=== PATIENT | male | born 1970 | race Caucasian/White ===

== ENCOUNTER 2025-08-07 12:43 | Outpatient (AMB) | payer OTHER, SELFPAY ==
--- NOTE | 2025-08-07 12:55 | HO.SPINEOV ---
Vital Signs 08/07/25 12:58 Height 6 ft 5 in Weight 320 lb BMI 37.9 Intake Visit Reasons: low back pain Intake Note: Mr. Kearney is here today c/o severe low back and leg pain. MRI done at [facility]. Physician Relations Representative Required: No Allergies No Known Allergies Allergy (Verified 08/07/25 12:58) Physical Exam Vital Signs: BMI result Body Mass Index 37.9 Assessment & Plan Assessment & Plan (1) Traumatic compression fracture of lumbar vertebra: Code(s): S32.000A - Wedge compression fracture of unspecified lumbar vertebra, initial encounter for closed fracture Category: Medical Plan: Dear colleague Thank you for referring Chaz Kearney to the office today with a chief complaint of back pain after a fall. HPI: This 55-year-old PR comes to my clinic complaining of persistent right-sided low back pain after a fall. Specifically, 4 months ago he fell down the stairs and landed on his buttock. Initially, he had severe pain 10/10 and was only able to lay in bed. Currently, the pain has improved. In rest it is 2/10 and with prolonged activity it increases to 5 to 6/10. He takes 2 ibuprofen a day. He denies radiation down his legs. No weakness or numbness. He was diagnosed with traumatic compression fractures and comes in to see me for an opinion. He denies osteoporosis. In fact, the [facility] did a bone density scan, which apparently was normal. PMH: Asthma, left knee replacement Medications: Albuterol, vitamin-D, omeprazole, naproxen, fluticasone Allergies: None Social history: Smokes 1 pack a day Physical Exam: Pleasant male. Height 6'5 weight 320 lb. He is able to come out of chair without difficulty. He ambulates with a cane. The pain is located in the left paravertebral region of the lower lumbar spine. Radiological Studies: MRI done at [facility] on 06/15/2025 shows acute L1 and L2 and L3 compression fractures without compromise of the neurological structures. There is approximately 30% height loss at L1 and L2 and less than 20% height loss of L3. The stir images showed that the L2 vertebral body is the most affected. There old compressions visible at L4 and L5. A standing x-ray obtained confirms that the compression fractures are stable. Impression/Plan: This patient has suffered from traumatic lumbar fractures of L1-L3 after a fall. I read the bone density report and it stated that despite the fact that the values were normal, he is considered to have osteoporosis based on the compression fractures after a low impact injury. He was started on vitamin-D. I told him he needs to add calcium to this regiment to be effective. He is slowly recovering. I did not offer him a kyphoplasty as this would involve multiple levels which puts him at risk for adjacent compression fractures. I advised him to continue conservative management. A new MRI needs to be obtained in 2 months if his symptoms are not further improving. He will become a kyphoplasty candidate at that time. Thank you for allowing me to participate in your patients care. total time spent was 50 minutes in counseling ,coordination of plan, personal review of imaging, surgical decision making and subsequent plan Nitesh Rosas MD, PhD [facility] Trained Neurosurgeon Director, [facility] Orders: Orders XR lumbar spine 2-3V Today S32.000A - Wedge compression fracture of unspecified lumbar vertebra, initial encounter for closed fracture Coding Level of Care Code New Pt Level 4 (72274) Diagnoses Traumatic compression fracture of lumbar vertebra S32.000A
[2025-08-07 12:58] VITALS: BMI 37.9
== END 2025-08-07 14:17 | disposition home or self-care (01) ==
LOC: HO.HNS 12:43
PROVIDERS: Visit Provider Neurological Surgery
DX: S32.018A Other fracture of first lumbar vertebra, initial encounter for closed fracture (principal); S32.028A Other fracture of second lumbar vertebra, initial encounter for closed fracture; S32.038A Other fracture of third lumbar vertebra, initial encounter for closed fracture
CPT/HCPCS: 99204

== ENCOUNTER 2025-08-07 12:43 | Outpatient (REF) | payer OTHER, SELFPAY ==
--- NOTE | ~2025-08-07 | XR_ITS ---
EXAMINATION: XR LUMBOSACRAL SPINE CLINICAL INFORMATION: S32.000A - Wedge compression fracture of unspecified lumbar vertebra, in... COMPARISON: None available. TECHNIQUE: Two views of the lumbosacral spine. FINDINGS: There is 10 mm anterior subluxation of L5 with respect to S1 and 5 mm anterior subluxation of L5 with respect to L4. Bone alignment is otherwise normal. There are L1-L2 and L3 vertebral body compression fractures. There are mild L1 and mild to moderate L2 superior endplate compression fractures. These appear slightly sclerotic questionable for recent fracture. There is a mild old appearing L3 vertebral body compression fracture. There may be slight loss of height of the superior endplate of the L4 vertebral body as well. There is multilevel degenerative spondylosis and degenerative disc disease. There is lower lumbar spine facet arthritis. XR/XR lumbar spine 2-3V IMPRESSION: L1-L3 vertebral body compression fractures. Multilevel degenerative spondylosis and degenerative disc disease. Anterior subluxation of L5 with respect to L4 and S1. Electronically signed by: Yoly Cole MD 08/07/2025 01:58 PM EDT
== END 2025-08-07 12:44 | disposition home or self-care (01) ==
LOC: HO.HOSX 12:43
PROVIDERS: Visit Provider Neurological Surgery
DX: S32.010A Wedge compression fracture of first lumbar vertebra, initial encounter for closed fracture (principal); S32.020A Wedge compression fracture of second lumbar vertebra, initial encounter for closed fracture; S32.030A Wedge compression fracture of third lumbar vertebra, initial encounter for closed fracture; M51.362 Other intervertebral disc degeneration, lumbar region with discogenic back pain and lower extremity pain; M47.26 Other spondylosis with radiculopathy, lumbar region; X58.XXXA Exposure to other specified factors, initial encounter
CPT/HCPCS: 72100; 99202

== ENCOUNTER → 2025-08-07 13:41 | Outpatient (BNV) | payer OTHER, SELFPAY | PROVIDERS: Visit Provider Radiology Diagnostic Radiology | DX: S32.010A Wedge compression fracture of first lumbar vertebra, initial encounter for closed fracture (principal); S32.020A Wedge compression fracture of second lumbar vertebra, initial encounter for closed fracture; S32.030A Wedge compression fracture of third lumbar vertebra, initial encounter for closed fracture | CPT/HCPCS: 72100 ==